=== PATIENT | male | born 1975 | race Caucasian/White ===

== ENCOUNTER 2017-10-12 09:43 | Emergency (ER) | payer BC ==
[2017-10-12] MEDS ORDERED: TETRACAINE HCL 0.5% OPH SOLN 2 ML OU ONE (10:58)
--- NOTE | 2017-10-12 10:59 | ER Document Report ---
ED Medical Screen (RME) - General Chief Complaint: Eye Pain Stated Complaint: EYE PAIN/BLURRY Time Seen by Provider: 10/12/17 10:56 TRAVEL OUTSIDE OF THE [place] IN LAST 30 DAYS: No - HPI Notes: 10/12/17 10:58 Bilateral elbow pain with photophobia drainage since last night - Related Data Allergies/Adverse Reactions: No Known Allergies Allergy (Verified 10/12/17 09:46) Review of Systems - Review of Systems EENT: Eye pain, Eye discharge, Blurred vision Physical Exam - HEENT Head: Normocephalic Eyes: Tears - Respiratory Respiratory status: No respiratory distress Chest status: Nontender Breath sounds: Normal Chest palpation: Normal
[2017-10-12] MEDS ORDERED: ERYTHROMYCIN 0.5% OPH OINTMENT 3.5 GM (ER DISP) OU ONE (11:54)
[2017-10-12] MEDS ORDERED: CYCLOPENTOLATE HCL 1% OPH SOLN 2 ML OU ONE (11:57)
[2017-10-12] MEDS ORDERED: IBUPROFEN 800 MG TABLET PO ONE (11:58)
--- NOTE | 2017-10-12 11:59 | ER Document Report ---
ED Eye Complaint - General Chief Complaint: Eye Pain Stated Complaint: EYE PAIN/BLURRY Time Seen by Provider: 10/12/17 10:56 Notes: 42-year-old male to emergency department chief complaint of eye pain bilaterally. States that he woke up this morning and his eyes were burning. Wears contacts. Took some anti-inflammatories and some Claritin because he thought he was having allergic reaction but his eyes continue to water and hurt. Light seems to make it worse. Patient works outside all day in the sun. States that he normally wears his sunglasses and has been wearing his sunglasses. Works as a pipeline worker. Here on a job. No other symptoms at this time. No loss of vision. Photosensitivity is present. TRAVEL OUTSIDE OF THE [place] IN LAST 30 DAYS: No - HPI Onset: Just prior to arrival Eye location: Bilateral Occurred at: Home - Related Data Allergies/Adverse Reactions: No Known Allergies Allergy (Verified 10/12/17 09:46) Past Medical History - General Information source: Patient - Social History Smoking Status: Current Every Day Smoker Cigarette use (# per day): Yes Chew tobacco use (# tins/day): No Frequency of alcohol use: None Drug Abuse: None Lives with: Family Family History: Reviewed & Not Pertinent Patient has suicidal ideation: No Patient has homicidal ideation: No - Past Medical History Cardiac Medical History: Reports: Hx Hypercholesterolemia Renal/ Medical History: Denies: Hx Peritoneal Dialysis Past Surgical History: Reports: Hx Cholecystectomy Review of Systems - Review of Systems Constitutional: denies: Fever, Malaise, Weakness EENT: Eye pain, Tearing. denies: Double vision, Throat pain, Throat swelling Cardiovascular: denies: Chest pain, Palpitations, Heart racing Respiratory: denies: Cough, Hurts to breathe, Short of breath, Wheezing Gastrointestinal: denies: Abdominal pain, Diarrhea, Nausea, Vomiting Genitourinary: denies: Burning, Dysuria, Retention Musculoskeletal: denies: Back pain, Joint pain, Muscle pain Skin: denies: No symptoms reported, Dryness, Lesions, Lumps Neurological/Psychological: denies: Confusion, Weakness Physical Exam - Vital signs Interpretation: Normal - General General appearance: Appears well, Alert In distress: Moderate Notes: Uncomfortable appearing due to eye pain - HEENT Head: Normocephalic, Atraumatic Eyes: Normal Cornea: Normal. No: Corneal abrasion, Corneal ulcer, Dendrite, Embedded foreign body, Flourescein stain uptake, Opacified, Superficial foreign body Extraocular movements intact: Yes Eyelashes: Normal Pupils: PERRL Visual acuity- Right eye: 20/40 Visual acuity- Left eye: 20/40 Visual acuity- Both eyes: 20/40 Corrective lenses worn: Yes Pharynx: Normal Neck: Normal - Respiratory Respiratory status: No respiratory distress Chest status: Nontender Breath sounds: Normal Chest palpation: Normal - Cardiovascular Rhythm: Regular Heart sounds: Normal auscultation Murmur: No - Neurological Neuro grossly intact: Yes Cognition: Normal Orientation: AAOx4 Lu Coma Scale Eye Opening: Spontaneous [place] Coma Scale Verbal: Oriented [place] Coma Scale Motor: Obeys Commands [place] Coma Scale Total: 15 Speech: Normal Motor strength normal: LUE, RUE, LLE, RLE Sensory: Normal Course - Re-evaluation Re-evalutation: 10/12/17 12:50 No obvious foreign bodies are seen. No significant amount of fluorescein uptake was appreciated. May have a few cells and flare seen on endoscopic exam. This could be consistent with a solar keratitis. At this time I am recommending that he follow up with ophthalmology. I have given him anti- inflammatories, erythromycin ophthalmic ointment and a cycloplegic. Patient's symptoms are much improved. Will recommend he stay out of direct sunlight. Follow-up with ophthalmology today or tomorrow for repeat evaluation. I did advise him not to wear his contacts. I did advise him to return if he develops any loss of vision, worsening pain or other symptoms. Tonometry was performed and high pressures were within normal ranges with the right eye average pressure of 14 in the left eye average pressure of 17. Was done with a greater than 95% confidence interval Discharge - Discharge Clinical Impression: Keratitis, bilateral Condition: Good Disposition: HOME, SELF-CARE Additional Instructions: You have been given eyedrops to dilate the eye. This will help with some of the pain. We are recommending that you use antibiotic ointment 4 times a day for the next 7 days. Ibuprofen every 8 hours for the pain. You must stay out of the direct sun and always wear sunglasses. Please follow-up with a eyeglass lens grinder tomorrow for repeat evaluation. In the event that your eye symptoms are getting worse, you begin to develop vision changes, loss of vision, blurred vision, severe headache, fever or any other symptoms please return immediately. Do not wear your contacts. Prescriptions: Erythromycin Base [Erythromycin Oph 1 Gm Oint Ud] 1 applic OU QID 7 Days #1 tube Ibuprofen [Motrin 800 mg Tablet] 800 mg PO Q8H PRN 10 Days #30 tab PRN Reason: For Pain Scale 3-4 Forms: Return to Work Referrals: SHIVANI JACKSON MD [ACTIVE STAFF] - 10/12/17 12:04 pm
[2017-10-12] MEDS ORDERED: HOMATROPINE HBR 5% OPH SOLN 5 ML OU ONE (12:20)
== END 2017-10-12 12:38 | disposition home or self-care (01) ==
LOC: ER 09:43
DX: H16.9 Unspecified keratitis (principal); F17.210 Nicotine dependence, cigarettes, uncomplicated
CPT/HCPCS: 99283; J3490